=== PATIENT | male | born 1965 | race Two or more races ===

== ENCOUNTER → 2017-01-30 | Outpatient (CLI) | payer MEDICARE ==
--- NOTE | 2017-01-30 15:40 | Diagnostic Imaging Report ---
Indications: PAIN Technique: 2 views of the thoracic spine Comparison: None Findings: Bony alignment is normal. Vertebral body heights are preserved. Disc spaces are preserved. No gross paraspinous mass Impression: Negative
--- NOTE | 2017-01-30 16:15 | Diagnostic Imaging Report ---
Indication: PAIN Technique: 4 views of the lumbar spine Comparison: None Findings: Vertebral body heights are preserved. There is minimal degenerative disc narrowing at L4-5 and L5-S1. The remainder of the disc spaces are preserved. The facet joint spaces and sacroiliac joint spaces are preserved. Sacral arches are preserved. Pedicles are intact. Surrounding soft tissues are unremarkable Impression: Minimal disc degeneration No acute process otherwise
== END | disposition home or self-care (01) ==
LOC: RAD 14:21
DX: M54.5 Low back pain (principal); G89.29 Other chronic pain; M51.37 Other intervertebral disc degeneration, lumbosacral region
CPT/HCPCS: 72070; 72110